=== PATIENT | female | born 1965 | race African-American/Black ===

== ENCOUNTER 2016-09-10 11:41 | Outpatient (CLI) | payer MEDICAID, MEDICARE ==
[2016-09-10 12:34] LABS: #Lymphocytes 0.8 thou/uL (1.20-3.40); #Monocytes 0.2 thou/uL (0.11-0.59); #Neutrophils 1.5 thou/uL (1.40-6.50); %Basophils 1.7 % (0.0-1.0); %Eosinophils 1.2 % (0.0-10.0); %Monocytes 6.4 % (0.0-10.0); %Neutrophils 58.8 % (42.0-75.0); Hemoglobin 13.6 g/dL (12.0-16.0); Mean Corpuscular HGB CONC 32.4 g/dL (32.0-36.0); Mean Corpuscular Hemoglobin 28.3 pg (27.0-31.0); Mean Corpuscular Volume 87.5 fl (81.0-99.0); Mean Platelet Volume 7.2 fL (7.4-10.4); Platelet Count 187 thou/uL (130-400); RBC Distribution Width 12.3 % (11.5-14.5); Red Blood Cell (RBC) Count 4.79 mill/uL (4.20-5.40); White Blood Cell (WBC) Count 2.6 thou/uL (4.8-10.8)
[2016-09-10 12:35] LABS: ALT (SGPT) 37 U/L (8-55); AST (SGOT) 20 U/L (5-34); Albumin 4.4 g/dL (3.5-5.0); Alkaline Phosphatase 141 U/L (40-150); Anion Gap 15 mmol/L (10-20); BUN (Urea Nitrogen) 11 mg/dL (9.8-20.1); Bilirubin, Total 0.3 mg/dL (0.2-1.2); Calc. Creatinine Clearance 0 mL/min (70-130); Calcium 9.2 mg/dL (7.8-10.44); Carbon Dioxide 26 mmol/L (22-29); Chloride 102 mmol/L (98-107); Estimated GFR-MDRD Greater than 90; Globulin 3.7 g/dL (2.4-3.5); Glucose 84 mg/dL (70-105); Potassium 4.1 mmol/L (3.5-5.1); Protein, Total 8.1 g/dL (6.0-8.3); Sodium 139 mmol/L (136-145)
== END 2016-09-10 11:42 | disposition home or self-care (01) ==
LOC: MADLABBHPM 11:41
PROVIDERS: ATTEND Family Medicine
DX: G40.001 Localization-related (focal) (partial) idiopathic epilepsy and epileptic syndromes with seizures of localized onset, not intractable, with status epilepticus (principal)
CPT/HCPCS: 36415; 80053; 80184; 85025